=== PATIENT | male | born 1990 | race Caucasian/White ===

== ENCOUNTER → 2017-11-26 | Outpatient (REF) | payer BC | LOC: ZZSENDIN 16:23 | PROVIDERS: ATTEND Orthopaedic Surgery Hand Surgery | DX: Z01.812 Encounter for preprocedural laboratory examination (principal) | CPT/HCPCS: 87071; 87073 ==

== ENCOUNTER → 2017-11-27 | Outpatient (REF) | payer BC | LOC: ZZSENDIN 04:58 | PROVIDERS: ATTEND Orthopaedic Surgery Hand Surgery | DX: M67.871 Other specified disorders of synovium, right ankle and foot (principal) | CPT/HCPCS: 88304; 88312 ==

== ENCOUNTER → 2018-02-04 | Outpatient (REF) | payer BC | LOC: ZZSENDIN 12:00 | PROVIDERS: ATTEND Orthopaedic Surgery Hand Surgery | DX: M19.071 Primary osteoarthritis, right ankle and foot (principal) | CPT/HCPCS: 88305; 88311 ==